=== PATIENT | female | born 1980 | race Caucasian/White ===

== ENCOUNTER 2020-04-28 08:12 | Outpatient (CLI) | payer OTHER ==
[2020-04-28] MEDS ORDERED: GADOBUTROL 10 MMOL/10 ML VIAL ONE (08:31)
--- NOTE | 2020-04-28 09:53 | MRI Report ---
PROCEDURE: Brain W/WO INDICATIONS: MIGRAINE W/AURA CONTRAST: IV CONTRAST: Gadavist ml: 8 TECHNIQUE: Noncontrast axial T1 spin echo, axial T2 fast spin echo, sagittal and axial FLAIR, coronal T2 fast sp in echo, axial gradient echo, axial diffusion and ADC through the brain. After the administration of contrast, axial and coronal T1 spin echo with fat saturation through the brain. COMPARISON: None. FINDINGS: Image quality: Excellent. CSF spaces: Basal cisterns are patent. No extra-axial fluid collections. Ventricles are normal in size and shape. Brain: No midline shift. No intracranial bleeds or masses. No abnormal intracranial enhancement. There is cerebral volume loss for age. There is periventricular white matter chronic small vessel is chemic change. The brainstem appears normal. Diffusion-weighted images demonstrate no acute ischemi c insults. No chronic ischemic insults. Normal intravascular flow voids are present. Skull and face: Calvarial marrow is normal in signal. Orbits appear normal. Minimal right maxillary sinus mucous retention cyst or polyp IMPRESSION: No acute intracranial abnormality or abnormal enhancement. No evidence of acute ischemia. Reviewed by: Dexter David MD on 04/28/2020 9:52 AM PDT Approved by: Dexter David MD on 04/28/2020 9:52 AM PDT Station ID: [id number]
[2020-04-28] MEDS ORDERED: GADOBUTROL 10 MMOL/10 ML VIAL IVP ONE (10:05)
== END 2020-04-28 08:13 | disposition home or self-care (01) ==
LOC: DI 08:12
PROVIDERS: ATTEND Physician Assistant Medical
DX: G43.109 Migraine with aura, not intractable, without status migrainosus (principal); G62.9 Polyneuropathy, unspecified; F51.3 Sleepwalking [somnambulism]
CPT/HCPCS: 70553; A9585

== ENCOUNTER 2020-09-17 21:12 | Emergency (ER) | payer OTHER ==
--- NOTE | 2020-09-17 21:22 | ED Physician Documentation ---
History of Present Illness - Stated complaint Stated Complaint: ABD PX, NAUSEA - Chief complaint Chief Complaint: Abd Pain PD PAST MEDICAL HISTORY - Allergies Allergies/Adverse Reactions: Allergies Allergy/AdvReac Type Severity Reaction Status Date / Time Latex, Natural Rubber Allergy Unknown Verified 09/17/20 21:19 Penicillins Allergy Anaphylaxis Verified 09/17/20 21:19 Results - Vitals Vitals: Vital Signs - 24 hr 09/17/20 21:15 Temperature 36.9 C Heart Rate 97 Respiratory 16 Rate Blood Pressure 164/87 H O2 Saturation 100 Oxygen O2 Source Room air
[2020-09-17 21:35] LABS: BASOPHILS % (AUTO) 0.5 %; EOSINOPHILS # (AUTO) 0.1 10^3/uL (0.0-0.7); EOSINOPHILS % (AUTO) 0.9 %; HGB - HEMOGLOBIN 10.1 g/dL (12.0-16.0); LYMPHOCYTES # (AUTO) 2.3 10^3/uL (1.5-3.5); LYMPHOCYTES % (AUTO) 40.4 %; MEAN CORPUSCULAR HEMOGLOBIN 23.1 pg (27.0-31.0); MEAN CORPUSCULAR HGB CONC 29.9 g/dL (32.0-36.0); MEAN CORPUSCULAR VOLUME 77.2 fL (81.0-99.0); MEAN PLATELET VOLUME 9.2 fL (7.9-10.8); MONOCYTES # (AUTO) 0.6 10^3/uL (0.0-1.0); MONOCYTES % (AUTO) 10.6 %; NEUTROPHILS # (AUTO) 2.7 10^3/uL (1.5-6.6); NEUTROPHILS % (AUTO) 47.6 %; PLT - PLATELET COUNT 274 10^3/uL (130-450); RED BLOOD COUNT 4.38 10^6/uL (4.20-5.40); RED CELL DISTRIBUTION WIDTH 18.1 % (12.0-15.0); WHITE BLOOD COUNT 5.6 x10^3/uL (4.8-10.8)
[2020-09-17 21:37] LABS: BILIRUBIN,URINE NEGATIVE (NEGATIVE); GLUCOSE, URINE (UA) NEGATIVE (NEGATIVE); KETONES,URINE (UA) NEGATIVE (NEGATIVE); LEUKOCYTE ESTERASE, URINE NEGATIVE (NEGATIVE); NITRITE,URINE NEGATIVE (NEGATIVE); OCCULT BLOOD,URINE NEGATIVE (NEGATIVE); PROTEIN,URINE NEGATIVE (NEGATIVE); UROBILINOGEN,URINE 0.2 (NORMAL) E.U./dL (NORMAL)
[2020-09-17 21:41] LABS: CLARITY,URINE CLEAR (CLEAR)
[2020-09-17 21:42] LABS: HCG UR QUAL NEGATIVE
[2020-09-17 21:48] LABS: ALBUMIN 4.7 g/dL (3.2-5.5); ALBUMIN/GLOBULIN RATIO 1.2 (1.0-2.2); BILIRUBIN,TOTAL 0.6 mg/dL (0.2-1.0); CALCIUM 10.2 mg/dL (8.5-10.3); CREATININE 0.7 mg/dL (0.4-1.0); TOTAL PROTEIN 8.5 g/dL (6.7-8.2)
--- NOTE | 2020-09-17 22:20 | ED Physician Documentation ---
History of Present Illness - Stated complaint Stated Complaint: ABD PX, NAUSEA - Chief complaint Chief Complaint: Abd Pain - History obtained from History obtained from: Patient - Additonal information Additional information: The patient comes to the emergency department complaining of right upper quadrant pain that started yesterday, along with nausea. She states the pain is located up under her right ribs and wrapping around into her flank a little. She denies fever or chills. No urinary symptoms. She states that the pain seemed to begin somewhat spontaneously yesterday, and carried into today. She has not had much of an appetite, but did try eating dinner tonight, and states that this is when the pain really picked up. She denies any pain with deep breaths. No cough or shortness of breath. No chest pain. Patient has had pain like this once before about 5 years ago but with negative work-up. She does note that her mother had a cholecystectomy. No other complaints at this time. Review of Systems Ten Systems: 10 systems reviewed and negative Constitutional: reports: Reviewed and negative Eyes: reports: Reviewed and negative Ears: reports: Reviewed and negative Nose: reports: Reviewed and negative Throat: reports: Reviewed and negative Cardiac: reports: Reviewed and negative Respiratory: reports: Reviewed and negative GI: reports: Abdominal Pain, Nausea, Vomiting : reports: Reviewed and negative Skin: reports: Reviewed and negative Musculoskeletal: reports: Reviewed and negative Neurologic: reports: Reviewed and negative Psychiatric: reports: Reviewed and negative Endocrine: reports: Reviewed and negative Immunocompromised: reports: Reviewed and negative PD PAST MEDICAL HISTORY - Past Medical History Past Medical History: Yes Cardiovascular: None Respiratory: None Neuro: Migraines Endocrine/Autoimmune: None GI: GERD 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 : None HEENT: None Psych: None Musculoskeletal: None Derm: None - Past Surgical History Past Surgical History: Yes HEENT: Tonsil/Adenoidectomy - Present Medications Home Medications: Ambulatory Orders Medication Instructions Recorded Confirmed Ondansetron Odt [Zofran] 4 mg TL Q6H PRN #20 tablet 09/18/20 - Allergies Allergies/Adverse Reactions: Allergies Allergy/AdvReac Type Severity Reaction Status Date / Time Latex, Natural Rubber Allergy Unknown Verified 09/17/20 21:19 Penicillins Allergy Anaphylaxis Verified 09/17/20 21:19 - Social History Does the pt smoke?: No Smoking Status: Never smoker Does the pt drink ETOH?: Yes Does the pt have substance abuse?: No - Immunizations Immunizations are current?: Yes - POLST Patient has POLST: No PD ED PE NORMAL - Vitals Vital signs reviewed: Yes - General General: Alert and oriented X 3, No acute distress - HEENT HEENT: Atraumatic, PERRL, EOMI, Moist mucous membranes - Neck Neck: Supple, no meningeal sign - Cardiac Cardiac: RRR, No murmur - Respiratory Respiratory: No respiratory distress, Clear bilaterally - Abdomen Abdomen: Soft, Non distended, Other (Right upper quadrant tenderness no rebound or guarding.) - Derm Derm: Warm and dry - Extremities Extremities: No deformity - Neuro Neuro: Alert and oriented X 3 - Psych Psych: Normal mood, Normal affect Results - Vitals Vitals: Vital Signs - 24 hr 09/17/20 09/17/20 09/18/20 21:15 23:06 00:41 Temperature 36.9 C 36.9 C 36.9 C Heart Rate 97 81 80 Respiratory 16 16 16 Rate Blood Pressure 164/87 H 134/82 H 132/80 H O2 Saturation 100 100 100 Oxygen O2 Source Room air - Labs Labs: Laboratory Tests 09/17/20 09/17/20 09/17/20 21:25 21:25 21:25 WBC 5.6 RBC 4.38 Hgb 10.1 L Hct 33.8 L MCV 77.2 L MCH 23.1 L MCHC 29.9 L RDW 18.1 H Plt Count 274 MPV 9.2 Neut # (Auto) 2.7 Lymph # (Auto) 2.3 [place] # (Auto) 0.6 Eos # (Auto) 0.1 Baso # (Auto) 0.0 Absolute Nucleated RBC 0.00 Nucleated RBC % 0.0 Sodium 138 Potassium 3.6 Chloride 98 L Carbon Dioxide 27 Anion Gap 13.0 BUN 9 Creatinine 0.7 Estimated GFR (MDRD) 93 Glucose 111 H Calcium 10.2 Total Bilirubin 0.6 AST 23 ALT 22 Alkaline Phosphatase 49 Total Protein 8.5 H Albumin 4.7 Globulin 3.8 Albumin/Globulin Ratio 1.2 Lipase 31 Urine Color Urine Clarity Urine pH Ur Specific [place] 1.020 Urine Protein Urine Glucose (UA) Urine Ketones Urine Occult Blood Urine Nitrite Urine Bilirubin Urine Urobilinogen Ur Leukocyte Esterase Ur Microscopic Review Urine Culture Comments Urine HCG, Qual NEGATIVE 09/17/20 21:29 WBC RBC Hgb Hct MCV MCH MCHC RDW Plt Count MPV Neut # (Auto) Lymph # (Auto) [place] # (Auto) Eos # (Auto) Baso # (Auto) Absolute Nucleated RBC Nucleated RBC % Sodium Potassium Chloride Carbon Dioxide Anion Gap BUN Creatinine Estimated GFR (MDRD) Glucose Calcium Total Bilirubin AST ALT Alkaline Phosphatase Total Protein Albumin Globulin Albumin/Globulin Ratio Lipase Urine Color YELLOW Urine Clarity CLEAR Urine pH 7.0 Ur Specific [place] 1.020 Urine Protein NEGATIVE Urine Glucose (UA) NEGATIVE Urine Ketones NEGATIVE Urine Occult Blood NEGATIVE Urine Nitrite NEGATIVE Urine Bilirubin NEGATIVE Urine Urobilinogen 0.2 (NORMAL) Ur Leukocyte Esterase NEGATIVE Ur Microscopic Review NOT INDICATED Urine Culture Comments NOT INDICATED Urine HCG, Qual - Rads (name of study) RUQ US Radiology: Final report received (fatty liver, otherwise unremarkable.), See rad report PD MEDICAL DECISION MAKING - ED course Complexity details: reviewed results, re-evaluated patient, considered differential, d/w patient ED course: Pt was worked up with labs and ultrasound the right upper quadrant. She was given IV fluids and Zofran initially, and later Tylenol for headache. Labs were unremarkable. Ultrasound did not show gallstones or any inflammation of the gallbladder or pancreas. The patient's lipase and LFTs were normal. I discussed with the patient that at this point in time, I am not sure what is causing her pain. The electronics repair technician has noted that the patient does seem to have quite a bit of air on attempting to do the ultrasound, and I discussed with the patient that she may have some air and stool that needs to pass from her rectum this may help her feel better. We have discussed home management of the symptoms, as well as the usual indications for return and follow-up. Departure - Departure Disposition: 01 Home, Self Care Clinical Impression: Abdominal pain Qualifiers: Abdominal location: right upper quadrant Qualified Code(s): R10.11 - Right upper quadrant pain Condition: Stable Instructions: ED Abdominal Pain Unkn Cause Prescriptions: Ondansetron Odt [Zofran] 4 mg TL Q6H PRN #20 tablet PRN Reason: Nausea / Vomiting Comments: Your labs, overall, look good. Your ultrasound does not show any abnormalities, which is good news. However, the electronics repair technician did note a lot of gas, and it may be that you have some stool and gas that need to move through and clear out. Once this happens, you may notice that your pain resolves. No emergent cause of your symptoms has been found today. Please follow-up with your primary care physician if you continue to have pain after the next several days. Discharge Date/Time: 09/18/20 00:41
[2020-09-17] MEDS ORDERED: ONDANSETRON 4 MG/2 ML VIAL IVP STA (22:21)
[2020-09-17] MEDS ORDERED: SODIUM CHLORIDE 0.9% 1,000 ML IV STA (22:21)
[2020-09-18] MEDS ORDERED: ACETAMINOPHEN 325 MG TABLET PO STA (00:34)
[2020-09-18] MEDS ORDERED: ONDANSETRON ODT 4 MG TABLET TL STA (00:34)
[2020-09-18 00:42] VITALS: BP 132/80
--- NOTE | 2020-09-18 07:33 | Ultrasound Report ---
PROCEDURE: Abdomen Limited INDICATIONS: RUQ pain TECHNIQUE: Real-time scanning was performed of the abdominal and retroperitoneal organs, with image documentatio n. COMPARISON: None. FINDINGS: Liver: The liver demonstrates diffusely increased echotexture without focal abnormalities which is c onsistent with chronic hepatocellular disease/hepatic steatosis . Gallbladder: Gallbladder is normal in appearance without gallstones, gallbladder wall thickening, o r pericholecystic fluid. Negative sonographic Mora's sign. Biliary ducts: Intrahepatic bile ducts are non-dilated. Extrahepatic bile duct caliber measures 3 m m. Normal is 6-7 mm or less in diameter, or 10 mm or less post-cholecystectomy. Pancreas: Limited visualization of the pancreas. Of the imaged portions, pancreas appears sonographic ally normal. Kidneys: Kidneys are normal in size and echotexture. Right kidney measures 10.1 cm long. No hydrone phrosis or nephrolithiasis. No solid masses. IVC: Intrahepatic inferior vena cava is patent. Miscellaneous: No free abdominal fluid. IMPRESSION: Diffuse hepatic steatosis. Normal sonographic evaluation of the gallbladder. No significant discrepancy with initial interpretation by overnight radiologist. Reviewed by: Tejas Gonzalez MD on 09/18/2020 7:31 AM PST Approved by: Tejas Gonzalez MD on 09/18/2020 7:31 AM PST Station ID: [id number]
== END 2020-09-18 00:41 | disposition home or self-care (01) ==
LOC: ED 21:12
DX: R10.11 Right upper quadrant pain (principal); R14.0 Abdominal distension (gaseous); R11.2 Nausea with vomiting, unspecified; K76.0 Fatty (change of) liver, not elsewhere classified; R51.9 Headache, unspecified
CPT/HCPCS: 36415; 76705; 80053; 81003; 81025; 83690; 85025; 96374; 99284; A9270; Q0162; 81001; 87086

== ENCOUNTER 2022-07-05 12:48 | Emergency (ER) | payer OTHER ==
[2022-07-05] MEDS ORDERED: DROPERIDOL 5 MG/2 ML VIAL IVP STA (13:21)
[2022-07-05] MEDS ORDERED: diphenhydrAMINE INJ 50 MG/ML VIAL IVP STA (13:21)
[2022-07-05] MEDS ORDERED: KETOROLAC 30 MG/ML VIAL IVP STA (13:21)
[2022-07-05] MEDS ORDERED: SODIUM CHLORIDE 0.9% 1,000 ML IV STA (13:22)
--- NOTE | 2022-07-05 13:24 | ED Physician Documentation ---
PD HPI ALTERED MENTAL STATUS - Stated complaint Stated Complaint: CONFUSION/VISION LOSS - Chief complaint Chief Complaint: Neuro - History obtained from History obtained from: Patient - History of Present Illness Timing - onset: Today Timing - duration: Hours (2.5) Timing - details: Abrupt onset Quality / character: Confused Associated symptoms: Other (blurred vision). No: Fever, Headache, Stiff neck, Dyspnea, Cough, NVD, Urinary sx, General weakness, Focal weakness, Seizure activity, Syncope Contributing factors: No: New medication, Intoxicated, Substance abuse, Known psych illness Basline status: Alert and oriented X 3 - Additional information Additional information: has a history of migraines and complex migraines, but this feels different. Patient states that she was at home today at around 11 AM when she felt her vision go blurry. She then had difficulty with speech and word finding. No focal neurological deficits. No numbness or tingling. No loss of limb control. No weakness. No neck or back pain. 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 HEENT: None Psych: None Musculoskeletal: None Derm: None - Past Surgical History Past Surgical History: Yes HEENT: Tonsil/Adenoidectomy - Present Medications Home Medications: Ambulatory Orders Medication Instructions Recorded Confirmed Omeprazole Magnesium 20 mg PO DAILY 07/05/22 07/05/22 - Allergies Allergies/Adverse Reactions: Allergies Allergy/AdvReac Type Severity Reaction Status Date / Time Latex, Natural Rubber Allergy Unknown Verified 07/05/22 13:07 Penicillins Allergy Anaphylaxis Verified 07/05/22 13:07 - Social History Does the pt smoke?: No Smoking Status: Never smoker Does the pt drink ETOH?: Yes Does the pt have substance abuse?: No - Immunizations Immunizations are current?: Yes - POLST Patient has POLST: No PD ED PE NORMAL - Vitals Vital signs reviewed: Yes - General General: Alert and oriented X 3, No acute distress - HEENT HEENT: Atraumatic, PERRL, EOMI, Ears normal, Moist mucous membranes, Pharynx benign - Neck Neck: Supple, no meningeal sign, No bony TTP - Cardiac Cardiac: RRR, Strong equal pulses - Respiratory Respiratory: No respiratory distress, Clear bilaterally - Abdomen Abdomen: Soft, Non tender, Non distended - Back Back: No CVA TTP, No spinal TTP - Derm Derm: Warm and dry, No rash - Extremities Extremities: No edema, No calf tenderness / cord - Neuro Neuro: Alert and oriented X 3, 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, No motor deficit, No sensory deficit, Normal speech Eye Opening: Spontaneous Motor: Obeys Commands Verbal: Oriented GCS Score: 15 - Psych Psych: Normal mood, Normal affect NIHSS - Time Time: 13:20 - Level of Consciousness Level of consciousness: (0) Alert, Keenly responsive LOC Questions: (0) Answers both Q's correct LOC Commands: (0) Performs both correctly - Gaze Best Gaze: (0) Normal - Visual Visual: (0) No loss - Facial Palsy Facial Palsy: (0) Normal, symmetrical movement - Motor Arms (both separate) Motor Arm (right): (0) No drift Motor Arm (left): (0) No drift - Motor Legs (both separate) Motor Leg (right): (0) No drift Motor Leg (left): (0) No drift - Limb Ataxia Limb Ataxia: (0) Absent - Sensory Sensory: (0) Normal - Best Language Best Language: (1) [id number] - Dysarthria Dysarthria: (0) Normal - Extinction and Inattention (formally neg Extinction and inattention: (0) No abnormality - Total Score/Results Total Score/Result: 1 Results - Vitals Vitals: Vital Signs - 24 hr 07/05/22 07/05/22 07/05/22 13:02 13:44 14:07 Temperature 36.3 C L Heart Rate 90 73 69 Respiratory 16 12 12 Rate Blood Pressure 171/90 H 146/93 H 146/92 H O2 Saturation 100 100 100 Oxygen O2 Source Room air - Labs Labs: Laboratory Tests 07/05/22 07/05/22 13:28 13:28 WBC 3.3 L RBC 4.65 Hgb 11.5 L Hct 36.7 L MCV 78.9 L MCH 24.7 L MCHC 31.3 L RDW 18.3 H Plt Count 262 MPV 9.9 Neut # (Auto) 1.5 Lymph # (Auto) 1.4 L [place] # (Auto) 0.4 Eos # (Auto) 0.0 Baso # (Auto) 0.0 Absolute Nucleated RBC 0.00 Nucleated RBC % 0.0 Sodium 138 Potassium 3.5 Chloride 106 Carbon Dioxide 22 Anion Gap 10.0 BUN 11 Creatinine 0.7 Estimated GFR (MDRD) 93 Glucose 116 H Calcium 9.3 Total Bilirubin 0.6 AST 19 ALT 18 Alkaline Phosphatase 51 Total Protein 8.4 H Albumin 4.5 Globulin 3.9 Albumin/Globulin Ratio 1.2 Lipase 34 - Rads (name of study) CT angiogram head Radiology: Final report received, EMP read contemporaneously, See rad report CT angiogram neck Radiology: Final report received, EMP read contemporaneously, See rad report PD MEDICAL DECISION MAKING - ED course Complexity details: reviewed results, re-evaluated patient, considered differential, d/w patient, d/w family ED course: 41-year-old female presents to the emergency department with difficulty with word finding and blurred vision earlier today. Has a history of migraine headaches. Symptoms appear consistent with a complex migraine/migraine with aura without headache. She was treated with Toradol and droperidol. Headache resolved. Symptoms resolved. CT angiogram head and neck are without any abnormality. We will have her follow-up with her doctor for further care. Patient counseled regarding signs and symptoms for which I believe and urgent re-evaluation would be necessary. Patient with good understanding of and agreement to plan and is comfortable going home at this time This document was made in part using voice recognition software. While efforts are made to proofread this document, sound alike and grammatical errors may occur. Departure - Departure Disposition: 01 Home, Self Care Clinical Impression: Migraine aura without headache Condition: Good Instructions: ED Headache Migraine Follow-Up: your,doctor in 1 week [Other] Comments: Please follow-up with your doctor for further care. Return if you worsen. Your CT angiogram of your head and neck do not show any acute abnormalities today. Your blood work does not show any acute abnormalities either. Discharge Date/Time: 07/05/22 15:32
[2022-07-05 13:32] LABS: BASOPHILS % (AUTO) 0.6 %; EOSINOPHILS % (AUTO) 1.2 %; HCT - HEMATOCRIT 36.7 % (37.0-47.0); HGB - HEMOGLOBIN 11.5 g/dL (12.0-16.0); LYMPHOCYTES # (AUTO) 1.4 10^3/uL (1.5-3.5); LYMPHOCYTES % (AUTO) 42.6 %; MEAN CORPUSCULAR HEMOGLOBIN 24.7 pg (27.0-31.0); MEAN CORPUSCULAR HGB CONC 31.3 g/dL (32.0-36.0); MEAN CORPUSCULAR VOLUME 78.9 fL (81.0-99.0); MEAN PLATELET VOLUME 9.9 fL (7.9-10.8); MONOCYTES # (AUTO) 0.4 10^3/uL (0.0-1.0); MONOCYTES % (AUTO) 11.4 %; NEUTROPHILS # (AUTO) 1.5 10^3/uL (1.5-6.6); NEUTROPHILS % (AUTO) 43.9 %; PLT - PLATELET COUNT 262 10^3/uL (130-450); RED BLOOD COUNT 4.65 10^6/uL (4.20-5.40); RED CELL DISTRIBUTION WIDTH 18.3 % (12.0-15.0); WHITE BLOOD COUNT 3.3 x10^3/uL (4.8-10.8)
[2022-07-05 13:46] LABS: ALBUMIN 4.5 g/dL (3.2-5.5); ALBUMIN/GLOBULIN RATIO 1.2 (1.0-2.2); BILIRUBIN,TOTAL 0.6 mg/dL (0.2-1.0); CALCIUM 9.3 mg/dL (8.5-10.3); CREATININE 0.7 mg/dL (0.4-1.0); POTASSIUM 3.5 mmol/L (3.5-5.0); TOTAL PROTEIN 8.4 g/dL (6.7-8.2)
--- NOTE | 2022-07-05 15:04 | CT Report ---
PROCEDURE: ANGIO HEAD W/WO INDICATIONS: confusion, blurred vision CONTRAST: IV CONTRAST: Optiray 320 ml: 80 PO CONTRAST: *NO PO CONTRAST TECHNIQUE: Precontrast 4.5 mm thick angled axial sections acquired from the foramen magnum to the vertex. Afte r the administration of intravenous contrast, 1 mm thick sections acquired through the [place] of [place] is. Postcontrast 4.5 mm thick sections then re-acquired from the foramen magnum to the vertex. 3-di mensional gyfxeww-jwinsdlvo-jrhaupufet (MIP) and/or volume rendering reformats were acquired of the c entral intracranial vasculature. For radiation dose reduction, the following was used: automated ex posure control, adjustment of mA and/or kV according to patient size. COMPARISON: None. FINDINGS: Image quality: Excellent. Anterior circulation: Intracranial internal carotid arteries are normal in size and flow. The flow within the paired anterior cerebral arteries is normal and symmetric. The flow within the middle cer ebral arteries is normal and symmetric. The anterior communicating artery is seen. Bilateral posteri or communicating arteries are present. No aneurysms are seen. Posterior circulation: Visualized portions of the vertebral arteries demonstrate normal caliber, and join to form a normal appearing basilar artery. Flow within the posterior cerebral arteries is norm al and symmetric. No aneurysms are seen. CSF spaces: Ventricles are normal in size and shape. Basal cisterns are patent. No extra-axial flu id collections. Brain: No midline shift. No intracranial bleeds or masses. Shaikh-white matter interface appears int act. Skull and face: Calvarium and facial bones appear intact, without suspicious lesions. Sinuses: Visualized sinuses and mastoids are clear. IMPRESSION: No acute intracranial abnormality. No hemodynamically significant arterial stenosis or occlusion. Reviewed by: Aubrey Hopkins MD on 07/05/2022 2:02 PM GHASSAN Approved by: Aubrey Hopkins MD on 07/05/2022 2:02 PM AKDT Station ID: [id number]
--- NOTE | 2022-07-05 15:04 | CT Report ---
PROCEDURE: ANGIO NECK W INDICATIONS: confusion, blurred vision CONTRAST: IV CONTRAST: Optiray 320 ml: 80 PO CONTRAST: *NO PO CONTRAST TECHNIQUE: After the administration of intravenous contrast, 1.5 mm axial sections acquired from the aortic arch to the [place] of [place]. Coronal 3-D maximum intensity projection (MIP) and/or volume rendering ref ormats were then performed. For radiation dose reduction, the following was used: automated exposur e control, adjustment of mA and/or kV according to patient size. COMPARISON: None. FINDINGS: Image quality: Excellent. Carotid system: The great vessels demonstrate a conventional anatomy as they arise from the aortic a [facility]. The origins of the common carotid arteries appear patent. The common carotid arteries demonstr ate normal calibers and courses. The bifurcation regions appear normal bilaterally. The internal ca rotid arteries demonstrate normal caliber and course. Posterior circulation: The origins of the vertebral arteries appear patent. The more superior porti ons of the vertebral arteries demonstrate normal course and caliber. They join to form a normal appe aring basilar artery. Soft tissues: Visualized neck soft tissues demonstrate no suspicious abnormalities. The thyroid is normal in size. Bones: No suspicious bony lesions. Visualized cervical spine appears normally aligned. IMPRESSION: No hemodynamically significant arterial stenosis or occlusion. The estimate of stenosis included in the report of the imaging study was calculated using the NASCET method Reviewed by: Aubrey Hopkins MD on 07/05/2022 2:02 PM GHASSAN Approved by: Aubrey Hopkins MD on 07/05/2022 2:02 PM GHASSAN Station ID: [id number]
[2022-07-05 15:19] VITALS: BP 146/92
== END 2022-07-05 15:32 | disposition home or self-care (01) ==
LOC: ED 12:48
DX: G43.109 Migraine with aura, not intractable, without status migrainosus (principal)
CPT/HCPCS: 36415; 70496; 70498; 80053; 83690; 85025; 93005; 96361; 96374; 96375; 99284; J1200; Q9967

== ENCOUNTER 2022-07-08 15:31 | Emergency (ER) | payer OTHER ==
[2022-07-08] MEDS ORDERED: LORazepam 1 MG TABLET PO STA (15:53)
--- NOTE | 2022-07-08 15:53 | ED Physician Documentation ---
PD HPI CHEST PAIN - Stated complaint Stated Complaint: HBP, CP - Chief complaint Chief Complaint: Cardiac - History obtained from History obtained from: Patient - Additional information Additional information: 41-year-old woman with history of anxiety and migraines presents to the evaluation of resolved chest pain. She was at work about a half an hour ago and developed pain underneath the left breast that radiated between the shoulder blades. It was associated with anxiety but no shortness of breath, fatigue, nausea, dizziness. She has not traveled recently. No pedal edema or calf pain. Pain lasted about 5 minutes and now is gone but she is still feeling anxious and noted her blood pressure to be in the neighborhood of 150/80. She does have a history of gastritis and has been trying to wean off her omeprazole. She was seen here the other day for what was probably a complicated migraine, she had some significant aftereffects from droperidol including akathisia lasting for a day but that was gone this morning. 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 HAND: None : None HEENT: None Psych: None Musculoskeletal: None Derm: None - Past Surgical History Past Surgical History: Yes HEENT: Tonsil/Adenoidectomy - Present Medications Home Medications: Ambulatory Orders Medication Instructions Recorded Confirmed Omeprazole Magnesium 20 mg PO DAILY 07/05/22 07/05/22 - Allergies Allergies/Adverse Reactions: Allergies Allergy/AdvReac Type Severity Reaction Status Date / Time Latex, Natural Rubber Allergy Unknown Verified 07/08/22 15:49 Penicillins Allergy Anaphylaxis Verified 07/08/22 15:49 - Social History Does the pt smoke?: No Smoking Status: Never smoker Does the pt drink ETOH?: Yes Does the pt have substance abuse?: No - Immunizations Immunizations are current?: Yes - POLST Patient has POLST: No PD ED PE NORMAL - Vitals Vital signs reviewed: Yes - General General: Alert and oriented X 3, No acute distress - HEENT HEENT: PERRL, EOMI - Neck Neck: Supple, no meningeal sign, No bony TTP - Cardiac Cardiac: RRR, No murmur - Respiratory Respiratory: No respiratory distress, Clear bilaterally - Abdomen Abdomen: Normal bowel sounds, Soft, Non tender - Back Back: No CVA TTP, No spinal TTP - Derm Derm: Normal color, Warm and dry - Extremities Extremities: No edema, No calf tenderness / cord - Neuro Neuro: Alert and oriented X 3, Normal speech Results - Vitals Vitals: Vital Signs - 24 hr 07/08/22 07/08/22 15:45 16:19 Temperature 36.8 C Heart Rate 99 82 Respiratory 14 21 Rate Blood Pressure 162/84 H 159/88 H O2 Saturation 100 100 Oxygen O2 Source Room air - Labs Labs: Laboratory Tests 07/08/22 07/08/22 07/08/22 15:50 15:50 15:50 WBC 4.8 RBC 4.79 Hgb 11.7 L Hct 37.6 MCV 78.5 L MCH 24.4 L MCHC 31.1 L RDW 18.4 H Plt Count 282 MPV 9.9 Neut # (Auto) 2.4 Lymph # (Auto) 1.9 Hartley # (Auto) 0.4 Eos # (Auto) 0.0 Baso # (Auto) 0.0 Absolute Nucleated RBC 0.00 Nucleated RBC % 0.0 Sodium 138 Potassium 3.5 Chloride 104 Carbon Dioxide 23 Anion Gap 11.0 BUN 13 Creatinine 0.7 Estimated GFR (MDRD) 93 Glucose 102 H Calcium 9.6 Total Bilirubin 0.5 AST 23 ALT 16 Alkaline Phosphatase 53 Troponin I High Sens < 2.3 L Total Protein 8.7 H Albumin 4.7 Globulin 4.0 Albumin/Globulin Ratio 1.2 Lipase 35 PD MEDICAL DECISION MAKING - ED course ED course: PE is considered, but she has no leg symptoms, no history of DVT or PE, no recent travel, no shortness of breath, and her symptoms were fleeting. Although she was borderline tachycardic on presentation this trended down without specific intervention. She felt like her symptoms were related to anxiety. Suspicion for ACS is low given that it started at rest and she does not have many risk factors and it only lasted 5 minutes and was otherwise relatively atypical. Consideration for gastritis or ulcer as well. She was feeling better after the administration of some oral lorazepam. Departure - Departure Disposition: 01 Home, Self Care Clinical Impression: Atypical chest pain Condition: Good Record reviewed to determine appropriate education?: Yes Instructions: ED Chest Pain Atypical Unkn Cause Comments: No concerning findings today, EKG and lab work were without significant diagnostic abnormalities. Return if symptoms recur or you develop new or other concerning symptoms. Follow-up with your primary care, next available appointment.
[2022-07-08 16:01] LABS: BASOPHILS % (AUTO) 0.4 %; EOSINOPHILS % (AUTO) 0.8 %; HCT - HEMATOCRIT 37.6 % (37.0-47.0); HGB - HEMOGLOBIN 11.7 g/dL (12.0-16.0); LYMPHOCYTES # (AUTO) 1.9 10^3/uL (1.5-3.5); MEAN CORPUSCULAR HEMOGLOBIN 24.4 pg (27.0-31.0); MEAN CORPUSCULAR HGB CONC 31.1 g/dL (32.0-36.0); MEAN CORPUSCULAR VOLUME 78.5 fL (81.0-99.0); MEAN PLATELET VOLUME 9.9 fL (7.9-10.8); MONOCYTES # (AUTO) 0.4 10^3/uL (0.0-1.0); MONOCYTES % (AUTO) 9.1 %; NEUTROPHILS # (AUTO) 2.4 10^3/uL (1.5-6.6); NEUTROPHILS % (AUTO) 49.5 %; PLT - PLATELET COUNT 282 10^3/uL (130-450); RED BLOOD COUNT 4.79 10^6/uL (4.20-5.40); RED CELL DISTRIBUTION WIDTH 18.4 % (12.0-15.0); WHITE BLOOD COUNT 4.8 x10^3/uL (4.8-10.8)
[2022-07-08 16:18] LABS: ALBUMIN 4.7 g/dL (3.2-5.5); ALBUMIN/GLOBULIN RATIO 1.2 (1.0-2.2); BILIRUBIN,TOTAL 0.5 mg/dL (0.2-1.0); CALCIUM 9.6 mg/dL (8.5-10.3); CREATININE 0.7 mg/dL (0.4-1.0); POTASSIUM 3.5 mmol/L (3.5-5.0); TOTAL PROTEIN 8.7 g/dL (6.7-8.2)
[2022-07-08 16:21] VITALS: BP 159/88
== END 2022-07-08 16:47 | disposition home or self-care (01) ==
LOC: ED 15:31
DX: R07.89 Other chest pain (principal)
CPT/HCPCS: 36415; 80053; 83690; 84484; 85025; 93005; 99282; 99284; J8499

== ENCOUNTER 2022-11-10 10:47 | Outpatient (CLI) | payer OTHER ==
--- NOTE | 2022-11-11 12:03 | Mammography Report ---
BILATERAL DIGITAL DIAGNOSTIC MAMMOGRAM 3D/2D WITH SPOT COMPRESSION: 11/10/2022 CLINICAL: Baseline exam. Focal right breast pain. No prior exams were available for comparison. Both breasts are heterogeneously dense, which may obscure small masses (category c / 51-75% glandular tissue). There is a possible 6 mm oval equal density asymmetry with an obscured and indistinct margin in the r ight breast at 11 o'clock anterior depth. This may correlate to the palpable abnormality. There also is a possible 7 mm irregular equal density asymmetry with a spiculated margin in the right breast at 12 o'clock middle depth. No other significant masses, calcifications, or other findings are seen in either breast. IMPRESSION: INCOMPLETE: NEEDS ADDITIONAL IMAGING EVALUATION A possible 6 mm oval equal density asymmetry in the right breast at 11 o'clock anterior depth may cor responds to the palpable abnormality, and remains indeterminate. An ultrasound is recommended. The possible 7 mm irregular equal density asymmetry in the right breast at 12 o'clock middle depth is indeterminate. An ultrasound is recommended. Ultrasound was performed immediately following this exam. Based on the Tyrer Cuzick model (a risk assessment model) the patients lifetime risk is 12.1% and he r 10 year risk is 1.7%. According to the ACR, ACS, and NCCN guidelines, an annual breast MRI exam zbigniew ng with mammogram is recommended if the patients lifetime risk is 20% or greater. This exam was interpreted at Station ID: [id number]. NOTE: For mammograms, a report in lay terms will be sent to the patient. Approximately 15% of breast malignancies will not be visualized mammographically. In the management of a palpable breast mass, a negative mammogram must not discourage biopsy of a clinically suspicious lesion. Electronically Signed By: Ofelia marques/:11/10/2022 12:38:25 ACR BI-RADS Category 0: Incomplete 3340F PARENCHYMAL PATTERN: (D) - The breast(s) demonstrate(s) heterogeneously dense fibroglandular parenchy ma. BI-RADS CATEGORY: (0) - 0 Ultrasound [id number] Immediate follow-up LATERALITY: (B)
--- NOTE | 2022-11-11 12:03 | Ultrasound Report ---
LIMITED ULTRASOUND OF RIGHT BREAST: 11/10/2022 CLINICAL: Patient returns today to evaluate an asymmetry in the right breast. Palpable right breast l ump. Comparison is made to exam dated: 11/10/2022 mammogram - [facility]. Real-time ultrasound of the right breast 10 o'clock and 12 o'clock regions was performed. Shaikh scale images of the real-time examination were reviewed. No significant abnormalities were seen sonographically in the right breast. Specifically, no finding to correspond to the patient's palpable abnormality or 12:00 mammographic abnormality. IMPRESSION: PROBABLY BENIGN No sonographic findings to correspond to the mammographic and palpable abnormalities. A follow-up right mammogram and an ultrasound in 6 months is recommended to demonstrate stability of both possible right breast asymmetries. Findings and recommendations were conveyed to the patient at time of exam. This exam was interpreted at Station ID: [id number]. Electronically Signed By: Ofelia marques/:11/10/2022 12:40:39 Ultrasound BI-RADS: 3 Probably benign BI-RADS CATEGORY: (3) - 3 Mammo and [place] [id number] 6 month follow-up LATERALITY: (R)
== END 2022-11-10 10:48 | disposition home or self-care (01) ==
LOC: DI 10:47
PROVIDERS: ATTEND Physician Assistant
DX: R92.8 Other abnormal and inconclusive findings on diagnostic imaging of breast (principal)

== ENCOUNTER 2023-05-26 10:49 | Outpatient (CLI) | payer OTHER ==
--- NOTE | 2023-05-27 09:37 | Mammography Report ---
UNILATERAL RIGHT DIGITAL DIAGNOSTIC MAMMOGRAM 3D/2D: 05/26/2023 CLINICAL: Patient returns for a 6 month follow up of the right breast. Comparison is made to exams dated: 11/10/2022 mammogram and 11/10/2022 ultrasound - [facility]. The right breast is heterogeneously dense, which may obscure small masses (category c / 51-75% glandu lar tissue). There is a possible 0.6 cm oval equal density asymmetry with an obscured margin in the right breast a t 11 o'clock anterior depth. This is less prominent and was not seen on the prior ultrasound. There also is a possible 0.7 cm irregular equal density focal asymmetry with an obscured margin in th e right breast at 12 o'clock middle depth. This is less prominent and was not seen on the prior ultr asound. No other significant masses or calcifications are seen in the breast. IMPRESSION: PROBABLY BENIGN The possible 0.6 cm oval equal density asymmetry in the right breast at 11 o'clock anterior depth res embles fibroglandular tissue and is probably benign. The possible 0.7 cm irregular equal density focal asymmetry in the right breast at 12 o'clock middle depth resembles fibroglandular tissue and is probably benign. A follow-up mammogram in 6 months is recommended to demonstrate stability. Based on the Tyrer Cuzick model (a risk assessment model) the patients lifetime risk is 12.5% and he r 10 year risk is 1.7%. According to the ACR, ACS, and NCCN guidelines, an annual breast MRI exam zbigniew ng with mammogram is recommended if the patients lifetime risk is 20% or greater. This exam was interpreted at Station ID: [id number]. NOTE: For mammograms, a report in lay terms will be sent to the patient. Approximately 15% of breast malignancies will not be visualized mammographically. In the management of a palpable breast mass, a negative mammogram must not discourage biopsy of a clinically suspicious lesion. Electronically Signed By: Aubrey nugent/agustín:05/26/2023 12:44:49 ACR BI-RADS Category 3: Probably benign 3343F PARENCHYMAL PATTERN: (D) - The breast(s) demonstrate(s) heterogeneously dense fibroglandular ashely rincon. BI-RADS CATEGORY: (3) - 3 Mammogram [id number] 6 month follow-up LATERALITY: (B)
== END 2023-05-26 10:50 | disposition home or self-care (01) ==
LOC: DI 10:49
PROVIDERS: ATTEND Physician Assistant
DX: R92.8 Other abnormal and inconclusive findings on diagnostic imaging of breast (principal)